=== PATIENT | male | born 1955 | race African-American/Black ===

== ENCOUNTER 2016-08-28 22:20 | Emergency (ER) | payer OTHER ==
[~2016-08-28] VITALS: Ht 167.6 cm; Wt 77.0 kg
[~2016-08-28 22:20] MED LIST: LISI-661 PO; METF850T2 PO
[2016-08-28 22:37] LABS: GLUCOSE,POINT OF CARE 214 MG/DL (70-110)
[2016-08-28] MEDS ORDERED: IBUPROFEN 800 MG TABLET PO ONE (23:30)
[2016-08-28] MEDS ORDERED: SODIUM CHLORIDE 0.9% 1,000 ML IV ONE (23:30)
[2016-08-29 00:01] LABS: INFLUENZA TYPE B NEGATIVE FOR TYPE B (NEGATIVE)
[2016-08-29] MEDS ORDERED: OSELTAMIVIR PHOSPHATE 75 MG CAPSULE PO ONE (00:15)
[2016-08-29 00:40] VITALS: BP 116/71
== END 2016-08-29 00:47 | disposition home or self-care (01) ==
LOC: EMS 22:21
DX: J11.1 Influenza due to unidentified influenza virus with other respiratory manifestations (principal); B34.9 Viral infection, unspecified; E11.9 Type 2 diabetes mellitus without complications; I10 Essential (primary) hypertension
CPT/HCPCS: 82962; 87804; 96360; 99284; J7030